=== PATIENT | female | born 1935 | race Asian ===

== ENCOUNTER 2019-02-24 10:42 | Observation (INO) | payer OTHER ==
[2019-02-24 11:19] VITALS: BMI 33.1
--- NOTE | 2019-02-24 11:52 | PDOC ---
Documentation entered by Nicky Galvan SCRIBE, acting as scribe for Tony Dey MD. Tony Dey MD: This documentation has been prepared by the Cole baca Adrianna, SCRIBE, under my direction and personally reviewed by me in its entirety. I confirm that the documentation accurately reflects all work, treatment, procedures, and medical decision making performed by me. Attending Attestation - Resident Resident Name: Markjosé [email or web address] - ED Attending Attestation I have performed the following: I have examined & evaluated the patient, The case was reviewed & discussed with the resident, I agree w/resident's findings & plan, Exceptions are as noted - HPI HPI: 02/24/19 11:55 83 F with h/o HTN, HLD, hypothyroid, presenting to ED with transient episode of palpitations and SOB. Pt states that this morning she was at rest when she suddenly felt her heart racing. She states that this was accompanied by SOB. Denies any chest pain. Denies lightheadedness/dizziness. Denies any diaphoresis. No N/V. Pt states the entire episode lasted about 20 minutes. Now asymptomatic with no complaints. - Physicial Exam PE: 02/24/19 12:03 "GENERAL: Awake, alert, and fully oriented, in no acute distress. HEAD: No signs of trauma EYES: PERRLA, EOMI, sclera anicteric, conjunctiva clear ENT: Auricles normal inspection, hearing grossly normal, nares patent, oropharynx clear without exudates. Moist mucosa NECK: Nontender, no stepoffs, Normal ROM, supple, no lymphadenopathy, JVD, or masses LUNGS: Breath sounds equal, clear to auscultation bilaterally. No wheezes, and no crackles HEART: Regular rate and rhythm, normal S1 and S2, no murmurs, rubs or gallops ABDOMEN: Soft, nontender, normoactive bowel sounds. No guarding, no rebound. No masses EXTREMITIES: Normal range of motion, no edema. No clubbing or cyanosis. No cords, erythema, or tenderness NEUROLOGICAL: Cranial nerves II through XII intact. 5/5 strength and sensation in all extremities, Normal speech, normal gait, normal cerebellar function SKIN: Warm, Dry, normal turgor, no rashes or lesions noted. - Medical Decision Making 02/24/19 12:06 83 F with transient episode of palpitations + SOB. Suspect paroxysmal arrhythmia. Pt's EKG currently shows sinus rhythm. Will r/o ACS. No evidence of volume overload on exam to suggest CHF. No wheezing to suggest COPD. Pt with no PE risk factors, no clinical signs of DVT. - Labs, trop, BNP - CXR - Tele Monitor 02/24/19 17:11 Labs wnl CTA shows no PE, incidental 5cm thoracic aneurysm Pt reassessed - is asymptomatic at this time Will consult vascular for recs 02/24/19 17:49 Dr. Fallon consulted, does not recommend intervention at this time for TAA Will admit tele obs for possible paroxysmal tachyarrhythmia
--- NOTE | 2019-02-24 12:08 | PDOC ---
History of Present Illness - General Chief Complaint: Palpitations Stated Complaint: Chest Pain Time Seen by Provider: 02/24/19 10:58 - History of Present Illness Initial Comments: 02/24/19 12:01 This is an 83 year old female with PMH significant for HTN. HLD, hypothyroidism , and gout. She presented to the ER after experiencing a 20 minute episode of sudden onset palpitations while she was seated and eating at her daycare at 10AM (2 hours ago) with SOB but no chest pain. She denies headaches, dizziness, fevers, nausea, vomiting, diarrhea, constipation, dysuria, hematuria, abdominal pain, or cough. She placed a prescription patch on her chest, but is not sure what it was. She has never had these symptoms before, and has no cardiac history with no recent stress tests or echos. She normally ambulates with a cane, and denies any orthopnea or PND. She has had no recent surgeries, and has a 24 pack year smoking history, although she quit 18 years ago. Past History - Past Medical History Allergies/Adverse Reactions: Allergies Allergy/AdvReac Type Severity Reaction Status Date / Time No Known Allergies Allergy Verified 02/24/19 11:03 Home Medications: Ambulatory Orders Aspirin [Aspirin EC] 81 mg PO DAILY 02/24/19 Azelastine HCl 1 drop NS BID 02/24/19 Colchicine [Colcrys] 0.6 mg PO BID 02/24/19 Levothyroxine [Synthroid -] 25 mcg PO DAILY 02/24/19 Nitroglycerin Patch [Nitro-Dur Patch -] 1 patch TD PRN 02/24/19 Simvastatin 40 mg PO DAILY 02/24/19 COPD: No HTN: Yes Hypercholesterolemia: Yes Thyroid Disease: Yes (hypothyroidism/toxic goiter many years ago) - Psycho Social/Smoking Cessation Hx Smoking History: Never smoked Hx Alcohol Use: No Drug/Substance Use Hx: No Review of Systems - Review of Systems Constitutional: No: Symptoms Reported, See HPI, Chills, Diaphoresis, Fever, Loss of Appetite, Malaise, Night Sweats, Weakness, Weight Stable, Unintentional Wgt. Loss, Unexplained wgt Loss, Other HEENTM: No: Symptoms Reported, See HPI, Eye Pain, Blurred Vision, Tearing, Recent change in vision, Double Vision, Cataracts, Ear Pain, Ocular Prothesis, Ear Discharge, Nose Pain, Nose Congestion, Tinnitus, Nose Bleeding, Hearing Loss , Throat Pain, Throat Swelling, Mouth Pain, Dental Problems, Difficulty Swallowing, Mouth Swelling, Other Respiratory: Yes: Cough, SOB at Rest. No: Symptoms reported, See HPI, Orthopnea , Shortness of Breath, SOB with Exertion, Stridor, Wheezing, Productive cough, Hemoptysis, Other Cardiac (ROS): Yes: Palpitations. No: Symptoms Reported, See HPI, Chest Pain, Edema, Irregular Heart Rate, Lightheadedness, Syncope, Chest Tightness, Other ABD/GI: No: Symptoms Reported, See HPI, Abdominal Distended, Abd. Pain w/ defecation, Blood Streaked Bowels, Constipated, Diarrhea, Difficulty Swallowing , Nausea, Poor Appetite, Poor Fluid Intake, Rectal Bleeding, Vomiting, Indigestion, Abdominal cramping, Tarry Stools, Other : No: Symptoms Reported, See HPI, Burning, Dysuria, Discharge, Frequency, Flank Pain, Hematuria, Incontinence, Pain, Urgency, Testicular Mass, Testicular Swelling, Lesions, Testicular Pain, Other Neurological: No: Symptoms reported, See HPI, Headache, Numbness, Paresthesia, Pre-Existing Deficit, Seizure, Tingling, Tremors, Weakness, Unsteady Gait, Ataxia, Dizziness, Other *Physical Exam - Vital Signs Last Vital Signs Temp Pulse Resp BP Pulse Ox 98 F 90 28 H 137/79 100 02/24/19 10:45 02/24/19 10:45 02/24/19 10:45 02/24/19 10:45 02/24/19 10:45 - Physical Exam Comments: 02/24/19 12:10 General: AOx3, lying comfortable in bed, pleasant and cooperative Eyes: OZ, EOM intact Oropharynx: Normal mucosa, no lesions Lungs: Transmitted upper respiratory coarse expirations, otherwise lungs clear B /L CVS: RRR, no murmurs GI: Soft, non tender, non distended, normoactive bowel sounds Extremities: No pitting edema, no erythema, no calf tenderness Neuro: Motor 5/5 B/L, sensations intact Heart Score/ECG Review - Electrocardiogram EKG: Normal - Age Age: >/= 65 - Risk Factors Risk Factors Heart Score: Yes Hx Hypercholesterolemia, Yes Hx Hypertension, Yes Smoking History Based on the list above the patient has:: >/=3 risk factors or Hx atherosclerotic disease - ECG Intrepretation Rhythm: Regular Rhythm ED Treatment Course - LABORATORY CBC & Chemistry Diagram: 02/24/19 12:15 02/24/19 12:15 - RADIOLOGY Radiology Studies Ordered: Category Date Time Status CHEST PA & LAT [RAD] Stat Radiology 02/24/19 11:57 Ordered Medical Decision Making - Medical Decision Making 02/24/19 12:11 - Likely transient arrhythmia, will r/o ACS, low suspicion of PE - CBC/CMP - Mg - EKG - Trops - BNP - CXR - TSH 02/24/19 13:32 - Labs reviewed, Trops negative, BUN 20, Ca 8.2, no other significant abnormalities - Tachypnea unexplained, will do Chest CTA - Repeat EKG - Will repeat Trops at 4:15PM 02/24/19 17:31 - CTA showed no evidence of PE - CTA showed 3cm fusiform aortic aneurysm, called Dr. Fallon for recommendation, awaiting call back - Second Trop 0.02 (not uploaded on [facility], received results verbally from Elvis at the Lab) 02/24/19 18:54 - Will admit for monitoring, patient signed out to Dr. Hernandez Discharge - Discharge Information Problems reviewed: Yes Clinical Impression/Diagnosis: Palpitations Condition: Guarded - Admission Yes - Follow up/Referral - Patient Discharge Instructions - Post Discharge Activity
[2019-02-24 12:35] LABS: BASO % 0.4 % (0-2.0); EOS % 0.4 % (0-4.5); HEMATOCRIT 42.3 % (32.4-45.2); LYMPH % 12.1 % (8-40); MCH 30.6 pg (25.7-33.7); MCHC 33.2 g/dl (32.0-36.0); MEAN CELL VOLUME 92.2 fl (80-96); MEAN PLT VOLUME 7.6 fl (7.5-11.1); NEUT % 80.1 % (42.8-82.8); PLATELET COUNT 207 K/MM3 (134-434); RBC 4.59 M/mm3 (3.60-5.2); RDW 13.9 % (11.6-15.6); WHITE BLOOD COUNT 6.7 K/mm3 (4.0-10.0)
[2019-02-24 13:03] LABS: ALBUMIN 3.3 g/dl (3.4-5.0); BILIRUBIN,TOTAL 0.4 mg/dL (0.2-1); BLOOD UREA NITROGEN 20.5 mg/dL (7-18); CALCIUM 8.2 mg/dL (8.5-10.1); POTASSIUM 3.7 mmol/L (3.5-5.1); TOT PROT 5.8 g/dl (6.4-8.2)
[2019-02-24 13:09] LABS: N-TERMINAL BNP 349.4 pg/ml (5-450)
--- NOTE | 2019-02-24 20:15 | HP ---
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 She denied having any chest pain, dizziness, visual changes around the time of the episode. Pt denies any recent immobilization, long flight, change in her home medications, weight loss, heat intolerance or bowel changes recently. ER course was notable for: (1) CBC, BMP mag and phos which were unremarkable, TSH 2.04, trop neg x2,BNP 349.4 (2)CXR with no acute pathology (3) CTA chest no evidence of PE, 3cm TAA aneurysm Recent Travel: none PAST MEDICAL HISTORY: As noted above PAST SURGICAL HISTORY: none per pt Social History: Smokin/2 PPD 18 yrs ago, doesnt remember for how many years Alcohol:none Drugs: none Allergies No Known Allergies Allergy (Verified 02/24/19 11:03) HOME MEDICATIONS: Home Medications Medication Instructions Recorded Aspirin [Aspirin EC] 81 mg PO DAILY 02/24/19 Azelastine HCl 1 drop NS BID 02/24/19 Colchicine [Colcrys] 0.6 mg PO BID 02/24/19 Levothyroxine [Synthroid -] 25 mcg PO DAILY 02/24/19 Nitroglycerin Patch [Nitro-Dur 1 patch TD PRN 02/24/19 Patch -] Simvastatin 40 mg PO DAILY 02/24/19 REVIEW OF SYSTEMS CONSTITUTIONAL: Absent: fever, chills, diaphoresis, generalized weakness, malaise, loss of appetite, weight change HEENT: Absent: rhinorrhea, nasal congestion, throat pain, throat swelling, difficulty swallowing, mouth swelling, ear pain, eye pain, visual changes CARDIOVASCULAR: palpitations Absent: chest pain, syncope, irregular heart rate, lightheadedness, peripheral edema RESPIRATORY: shortness of breath,wheezing Absent: cough , dyspnea with exertion, orthopnea, stridor, hemoptysis GASTROINTESTINAL: Absent: abdominal pain, abdominal distension, nausea, vomiting, diarrhea, constipation, melena, hematochezia GENITOURINARY: Absent: dysuria, frequency, urgency, hesitancy, hematuria, flank pain, genital pain MUSCULOSKELETAL: Absent: myalgia, arthralgia, joint swelling, back pain, neck pain SKIN: Absent: rash, itching, pallor HEMATOLOGIC/IMMUNOLOGIC: Absent: easy bleeding, easy bruising, lymphadenopathy, frequent infections ENDOCRINE: Absent: unexplained weight gain, unexplained weight loss, heat intolerance, cold intolerance NEUROLOGIC: Absent: headache, focal weakness or paresthesias, dizziness, unsteady gait, seizure, mental status changes, bladder or bowel incontinence PSYCHIATRIC: Absent: anxiety, depression, suicidal or homicidal ideation, hallucinations. PHYSICAL EXAMINATION Vital Signs - 24 hr 02/24/19 02/24/19 02/24/19 10:45 11:30 15:30 Temperature 98 F 97.2 F L Pulse Rate 90 Pulse Rate [ 88 88 Apical] Respiratory 28 H 22 H 22 H Rate Blood Pressure 137/79 Blood Pressure 121/84 120/72 [Right Arm] O2 Sat by Pulse 100 100 99 Oximetry (%) GENERAL: Awake, alert, and fully oriented, in no acute distress. HEAD: Normal with no signs of trauma. EYES: Pupils equal, round and reactive to light, extraocular movements intact, sclera anicteric, conjunctiva clear. No lid lag. EARS, NOSE, THROAT: Ears normal, nares patent, oropharynx clear without exudates. Moist mucous membranes. NECK: Normal range of motion, supple without lymphadenopathy, JVD, or masses. LUNGS: Breath sounds equal, clear to auscultation bilaterally ,mild wheezes, and no crackles. No accessory muscle use. HEART: Regular rate and rhythm, normal S1 and S2 without murmur, rub or gallop. ABDOMEN: Soft, nontender, not distended, normoactive bowel sounds, no guarding, no rebound, no masses. No hepatomegaly or splenomegaly. MUSCULOSKELETAL: Normal range of motion at all joints. No bony deformities or tenderness. No CVA tenderness. UPPER EXTREMITIES: 2+ pulses, warm, well-perfused. No cyanosis. No clubbing. No peripheral edema. LOWER EXTREMITIES: 2+ pulses, warm, well-perfused. No calf tenderness. No peripheral edema. NEUROLOGICAL: Cranial nerves II-XII intact. Normal speech. Normal gait. strength 5/5, sensation intact PSYCHIATRIC: Cooperative. Good eye contact. Appropriate mood and affect. SKIN: Warm, dry, normal turgor, no rashes or lesions noted, normal capillary refill. Laboratory Results - last 24 hr 02/24/19 02/24/19 02/24/19 12:15 12:15 12:15 WBC 6.7 RBC 4.59 Hgb 14.0 Hct 42.3 MCV 92.2 MCH 30.6 MCHC 33.2 RDW 13.9 Plt Count 207 MPV 7.6 Absolute Neuts (auto) 5.3 Neutrophils % 80.1 Lymphocytes % 12.1 Monocytes % 7.0 Eosinophils % 0.4 Basophils % 0.4 Nucleated RBC % 0 Sodium 144 Potassium 3.7 Chloride 110 H Carbon Dioxide 29 Anion Gap 5 L BUN 20.5 H Creatinine 1.0 Est GFR (CKD-EPI)AfAm 59.91 Est GFR (CKD-EPI)NonAf 51.69 Random Glucose 95 Calcium 8.2 L Magnesium 2.3 Total Bilirubin 0.4 AST 19 ALT 20 Alkaline Phosphatase 94 Creatine Kinase Creatine Kinase Index CK-MB (CK-2) Troponin I B-Natriuretic Peptide Total Protein 5.8 L Albumin 3.3 L TSH 02/24/19 02/24/19 02/24/19 12:15 12:15 16:30 WBC RBC Hgb Hct MCV MCH MCHC RDW Plt Count MPV Absolute Neuts (auto) Neutrophils % Lymphocytes % Monocytes % Eosinophils % Basophils % Nucleated RBC % Sodium Potassium Chloride Carbon Dioxide Anion Gap BUN Creatinine Est GFR (CKD-EPI)AfAm Est GFR (CKD-EPI)NonAf Random Glucose Calcium Magnesium Total Bilirubin AST ALT Alkaline Phosphatase Creatine Kinase 150 141 Creatine Kinase Index 1.5 CK-MB (CK-2) 2.3 Troponin I < 0.02 0.02 B-Natriuretic Peptide 349.4 Total Protein Albumin TSH 2.04 ASSESSMENT/PLAN: 83 y/o F with PMH of HTN, HLD, gout, 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 Palpitations and SOB 2/2 arrhythmia vs PE r/o ACS Tele Obs trops neg x2, BNP 349.4 ekg remarkable only for PACs no ST changes echo ordered CXR with no acute pathology CTA no evidence of PE but incidental finding of aneurysm measuring 5cm. Vascular Dr Fallon no intervention at this time 3mm pulmonary nodule ( no prior image on file to compare) F/u cardio o/p possible holter if nothing during admission TSH 2.04 Wheezing duonebs FEN Na controlled diet DVT Lovenox 40 SQ daily Visit type - Emergency Visit Emergency Visit: Yes ED Registration Date: 02/24/19 Care time: The patient presented to the Emergency Department on the above date and was hospitalized for further evaluation of their emergent condition. - New Patient This patient is new to me today: Yes Date on this admission: 02/24/19 - Critical Care Critical Care patient: No ATTENDING PHYSICIAN STATEMENT I saw and evaluated the patient. I reviewed the resident's note and discussed the case with the resident. I agree with the resident's findings and plan as documented. SUBJECTIVE: OBJECTIVE: ASSESSMENT AND PLAN: <Serafin Zhong - Last Filed: 03/04/19 10:47> Seen and examined; HTN, HLD, hypothyroid, presenting to ED with transient episode of palpitations and SOB. I have seen and examined the indicated patient along with the resident team. I have personally verified all sloan exam findings and historical components. I have personally interpreted all diagnostics indicated per todays orders and reviewed interpretation of indicated subspecialty services. This patient meets a high level of medical complexity and warrants inpatient stay to avoid decompensation and worsening of the indicated illness. S: Agree with historical findings as outlined in resident documentation regarding history of present illness. 10 system ROS completed and is negative aside from indicated issues in the resident/attending history of present illness and full documentation. Past Medical History and Past Surgical Histories reviewed in depth; per resident note Social history is reviewed; per resident note Complete family history is reviewed with patient and is non-pertinent aside from the indicated issues outlined above. No sudden history of cardiac . O: All vital signs reviewed per ER records and are as per EMR NAD, AAO, Resting in bed NC AT EOMI PERRLA Neck supple, trachea midline, no ruby LN RRR s1/2 Lungs CTAB, w/ sym expansion NT ND +BS No skin breakdown or rashes noted CN2-12 wnl, no new focal deficits noted Muscle tone normal, no deficits in motor function or strength noted Normal mood, appropriate behavior, average insight No new diagnostics noted today. A/P:Patient seen, examined, and discussed in depth with resident team. Problem list reviewed per resident note and agree with their discussion aside from as supplemented by myself below ATTENDING PHYSICIAN STATEMENT I saw and evaluated the patient. I reviewed the resident's note and discussed the case with the resident. I agree with the resident's findings and plan as documented. SUBJECTIVE: OBJECTIVE: ASSESSMENT AND PLAN:
[2019-02-24] MEDS ORDERED: ALBUTEROL SO4 0.083% IH SOL 2.5 MG/3 ML VIAL.NEB. NEB PRN (20:20)
[2019-02-25 07:51] LABS: BASO % 0.6 % (0-2.0); HEMATOCRIT 41.6 % (32.4-45.2); HEMOGLOBIN 13.8 GM/dL (10.7-15.3); LYMPH % 34.9 % (8-40); MCH 30.5 pg (25.7-33.7); MCHC 33.3 g/dl (32.0-36.0); MEAN CELL VOLUME 91.7 fl (80-96); MEAN PLT VOLUME 7.6 fl (7.5-11.1); MONO % 8.7 % (3.8-10.2); NEUT % 50.8 % (42.8-82.8); PLATELET COUNT 204 K/MM3 (134-434); RBC 4.53 M/mm3 (3.60-5.2); RDW 14.4 % (11.6-15.6); WHITE BLOOD COUNT 4.9 K/mm3 (4.0-10.0)
[2019-02-25 08:09] LABS: ALBUMIN 3.8 g/dl (3.4-5.0); BILIRUBIN,TOTAL 0.6 mg/dL (0.2-1); CALCIUM 8.7 mg/dL (8.5-10.1); POTASSIUM 3.5 mmol/L (3.5-5.1); TOT PROT 6.6 g/dl (6.4-8.2)
--- NOTE | 2019-02-25 09:20 | PN ---
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 SHE DENIES HAVING ANY OTHER SYMPTOMS. Vital Signs Temperature 98.1 F 02/25/19 07:47 Pulse Rate 74 02/25/19 07:47 Respiratory Rate 16 02/25/19 07:47 Blood Pressure 157/89 02/25/19 07:47 O2 Sat by Pulse Oximetry (%) 97 02/25/19 07:47 GENERAL: The patient is awake, alert, and fully oriented, in no acute distress. HEAD: Normal with no signs of trauma. EYES: PERRL, extraocular movements intact, sclera anicteric, conjunctiva clear. ENT: Ears normal, oropharynx clear without exudates, moist mucous membranes. NECK: Trachea midline, full range of motion, supple. LUNGS: Breath sounds equal, clear to auscultation bilaterally, no wheezes, no crackles, no accessory muscle use. HEART: Regular rate and rhythm, S1, S2 without murmur, rub or gallop. ABDOMEN: Soft, nontender, nondistended, normoactive bowel sounds, no guarding, no rebound, no hepatosplenomegaly, no masses. EXTREMITIES: 2+ pulses, warm, well-perfused, no edema. NEUROLOGICAL: Cranial nerves II through XII grossly intact. Normal speech, gait not observed. PSYCH: Normal mood, normal affect. SKIN: Warm, dry, normal turgor, no rashes or lesions noted CBCD WBC 4.9 K/mm3 (4.0-10.0) 02/25/19 06:55 RBC 4.53 M/mm3 (3.60-5.2) 02/25/19 06:55 Hgb 13.8 GM/dL (10.7-15.3) 02/25/19 06:55 Hct 41.6 % (32.4-45.2) 02/25/19 06:55 MCV 91.7 fl (80-96) 02/25/19 06:55 MCHC 33.3 g/dl (32.0-36.0) 02/25/19 06:55 RDW 14.4 % (11.6-15.6) 02/25/19 06:55 Plt Count 204 K/MM3 (134-434) 02/25/19 06:55 MPV 7.6 fl (7.5-11.1) 02/25/19 06:55 CMP Sodium 145 mmol/L (136-145) 02/25/19 06:55 Potassium 3.5 mmol/L (3.5-5.1) 02/25/19 06:55 Chloride 109 mmol/L (98-107) H 02/25/19 06:55 Carbon Dioxide 27 mmol/L (21-32) 02/25/19 06:55 Anion Gap 9 MMOL/L (8-16) 02/25/19 06:55 BUN 17.0 mg/dL (7-18) 02/25/19 06:55 Creatinine 1.0 mg/dL (0.55-1.3) 02/25/19 06:55 Random Glucose 97 mg/dL (74-106) 02/25/19 06:55 Calcium 8.7 mg/dL (8.5-10.1) 02/25/19 06:55 Total Bilirubin 0.6 mg/dL (0.2-1) 02/25/19 06:55 AST 17 U/L (15-37) 02/25/19 06:55 ALT 20 U/L (13-61) 02/25/19 06:55 Alkaline Phosphatase 102 U/L (45-117) 02/25/19 06:55 Total Protein 6.6 g/dl (6.4-8.2) 02/25/19 06:55 Albumin 3.8 g/dl (3.4-5.0) 02/25/19 06:55 CARDIAC ENZYMES Creatine Kinase 141 U/L (26-192) 02/24/19 16:30 Troponin I 0.02 ng/ml (0.00-0.05) 02/24/19 16:30 Current Medications Generic Name Dose Route Start Last Admin Trade Name Freq PRN Reason Stop Dose Admin Albuterol Sulfate 1 amp 02/24/19 20:20 Ventolin 0.083% Nebulizer Soln - NEB Q6H PRN SHORT OF BREATH/WHEEZING Enoxaparin Sodium 40 mg 02/25/19 10:00 Lovenox - SQ DAILY [facility] Home Medications Medication Instructions Recorded Aspirin [Aspirin EC] 81 mg PO DAILY 02/24/19 Azelastine HCl 1 drop NS BID 02/24/19 Colchicine [Colcrys] 0.6 mg PO BID 02/24/19 Levothyroxine [Synthroid -] 25 mcg PO DAILY 02/24/19 Nitroglycerin Patch [Nitro-Dur 1 patch TD PRN 02/24/19 Patch -] Simvastatin 40 mg PO DAILY 02/24/19 Home Medications Medication Instructions Recorded Aspirin [Aspirin EC] 81 mg PO DAILY 02/24/19 Azelastine HCl 1 drop NS BID 02/24/19 Colchicine [Colcrys] 0.6 mg PO BID 02/24/19 Levothyroxine [Synthroid -] 25 mcg PO DAILY 02/24/19 Nitroglycerin Patch [Nitro-Dur 1 patch TD PRN 02/24/19 Patch -] Simvastatin 40 mg PO DAILY 02/24/19 Carvedilol [Coreg -] 3.125 mg PO BID #30 tablet 02/25/19 Valsartan [Diovan] 160 mg PO DAILY #30 tablet 02/25/19 ekg remarkable only for PACs no ST changes CXR with no acute pathology CTA no evidence of PE but incidental finding of aneurysm measuring 5cm Assessment and plan: 83 y/o F with PMHx of HTN, HLD, gout, 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 no intervention at this time as per dr owen. # Pulmonary Nodule 3mm ,right upper lobe follow up with repeat CT in 3 months # HTN uncontrolled: on erbesertan 32mg at home, will substitute with diovan 320mg equivalent and added coreg 3.125mg po bid DVT px: lovenox 40 SQ daily Visit type - Emergency Visit Emergency Visit: Yes ED Registration Date: 02/24/19 Care time: The patient presented to the Emergency Department on the above date and was hospitalized for further evaluation of their emergent condition. - New Patient This patient is new to me today: Yes Date on this admission: 02/25/19 - Critical Care Critical Care patient: No - Discharge Referral Referred to [facility] Med [facility] No
[2019-02-25] MEDS ORDERED: VALSARTAN 160 MG TABLET (UD) PO SCH (10:00)
[2019-02-25] MEDS ORDERED: ENOXAPARIN NA (PORCINE) 40 MG/0.4 ML DISP.SYRIN SQ SCH (10:00)
[2019-02-25] MEDS ORDERED: VALSARTAN 80 MG TABLET (UD) ONE (10:32)
[2019-02-25] MEDS ORDERED: ENOXAPARIN NA (PORCINE) 40 MG/0.4 ML DISP.SYRIN SQ ONE (10:32)
--- NOTE | 2019-02-25 10:42 | CON.CARD ---
Consult Consult Specialty:: Cardiology Referred by:: bushra Reason for Consultation:: palpitations - History of Present Illness Chief Complaint: palpitations History of Present Illness: 83 y/o F with PMH of HTN, HLD, gout, toxic multinodular s/p treatment, hypothyroidism who presented to the ED with palpitations and shortness of breath that lasted for approx 20 min. No chest pain, orthopnea, pnd or edema. No dizziness or syncope. Exercise tolerance is good. - History Source History Provided By: Patient, Family Member, Medical Record - Alcohol/Substance Use Hx Alcohol Use: No - Smoking History Smoking history: Never smoked Home Medications - Allergies Allergies/Adverse Reactions: Allergies Allergy/AdvReac Type Severity Reaction Status Date / Time No Known Allergies Allergy Verified 02/24/19 11:03 - Home Medications Home Medications: Ambulatory Orders Aspirin [Aspirin EC] 81 mg PO DAILY 02/24/19 Azelastine HCl 1 drop NS BID 02/24/19 Colchicine [Colcrys] 0.6 mg PO BID 02/24/19 Levothyroxine [Synthroid -] 25 mcg PO DAILY 02/24/19 Nitroglycerin Patch [Nitro-Dur Patch -] 1 patch TD PRN 02/24/19 Simvastatin 40 mg PO DAILY 02/24/19 Vital Signs: Vital Signs Temperature 98.1 F 02/25/19 07:47 Pulse Rate 74 02/25/19 07:47 Respiratory Rate 16 02/25/19 07:47 Blood Pressure 157/89 02/25/19 07:47 O2 Sat by Pulse Oximetry (%) 97 02/25/19 07:47 Constitutional: Yes: No Distress, Calm Eyes: Yes: Conjunctiva Clear, EOM Intact HENT: Yes: Atraumatic, Normocephalic Neck: Yes: Trachea Midline Respiratory: Yes: CTA Bilaterally Gastrointestinal: Yes: Normal Bowel Sounds, Soft Cardiovascular: Yes: Regular Rate and Rhythm JVD: No Carotid Bruit: No PMI: Non-Displaced Heart Sounds: Yes: S1, S2 Musculoskeletal: Yes: WNL Extremities: Yes: WNL Edema: No Peripheral Pulses WNL: Yes - Other Data Labs, Other Data: CBC, BMP 02/25/19 06:55 02/25/19 06:55 Troponin, BNP 02/24/19 02/24/19 02/24/19 12:15 12:15 16:30 Troponin I < 0.02 0.02 B-Natriuretic Peptide 349.4 Troponin, BNP 02/24/19 02/24/19 02/24/19 12:15 12:15 16:30 Troponin I < 0.02 0.02 B-Natriuretic Peptide 349.4 Imaging - Results Chest X-ray: Report Reviewed EKG: Report Reviewed (nsr) Assessment/Plan 83 y/o F with PMH of HTN, HLD, gout, toxic multinodular s/p treatment, hypothyroidism who presented to the ED because around 9:30 this morning she experienced an episode of palpitations and shortness of breath that lasted for approx 20 min. Plan -no evidence of ACS. -stable and low risk symptoms -outpatient fu for echo, event monitor. -continue current medication. -no need for inpt moreno.
[2019-02-25] MEDS ORDERED: CARVEDILOL 3.125 MG TABLET (FP) PO ONE (15:53)
[2019-02-25] MEDS ORDERED: CARVEDILOL 3.125 MG TABLET (FP) ONE (16:36)
[2019-02-25 17:23] VITALS: TEMP 97.8
[2019-02-25 18:51] VITALS: BP 122/76; PULSE 75
--- NOTE | 2019-02-26 08:29 | EKG ---
Test Reason : Blood Pressure : / mmHG Vent. Rate : 095 BPM Atrial Rate : 095 BPM P-R Int : 166 ms QRS Dur : 082 ms QT Int : 380 ms P-R-T Axes : 034 -45 049 degrees QTc Int : 477 ms SINUS RHYTHM WITH PREMATURE ATRIAL COMPLEXES LEFT ANTERIOR FASCICULAR BLOCK MINIMAL VOLTAGE CRITERIA FOR LVH, MAY BE NORMAL VARIANT ABNORMAL ECG NO PREVIOUS ECGS AVAILABLE Confirmed by Rubina Vazquez ([id number]) on 02/26/2019 8:28:50 AM Referred By: Confirmed By:Rubina Vazquez
== END 2019-02-25 18:40 | disposition home or self-care (01) ==
LOC: JER 10:42 → JERBED 18:02
PROVIDERS: ADMIT Internal Medicine; ATTEND Internal Medicine
PROC: 3E013GC Introduction of Other Therapeutic Substance into Subcutaneous Tissue, Percutaneous Approach (ICD-10-PCS; principal; 2019-02-24)
DX: R00.2 Palpitations (principal); I10 Essential (primary) hypertension; E78.5 Hyperlipidemia, unspecified; E03.9 Hypothyroidism, unspecified; M10.9 Gout, unspecified; I71.2 Thoracic aortic aneurysm, without rupture; R91.1 Solitary pulmonary nodule; Z79.82 Long term (current) use of aspirin
CPT/HCPCS: 36415; 71046-TC-FY; 71275-TC; 80053; 82550; 82553; 83735; 83880; 84439; 84443; 84481; 84484; 85025; 93005; 93010; 96372; 99285-25; G0378; Q9967